=== PATIENT | female | born 1980 | race Two or more races ===

== ENCOUNTER 2020-09-14 13:01 | Outpatient (RCR) | payer MEDICAID, SELFPAY | END 2021-03-02 08:12 | disposition home or self-care (01) | LOC: HO.PT 13:01 | PROVIDERS: PCP Family Medicine; Visit Provider Family Medicine | DX: M54.6 Pain in thoracic spine (principal) | CPT/HCPCS: 97110; 97161 ==

== ENCOUNTER 2022-03-25 14:06 | Emergency (ER) | payer MEDICAID, SELFPAY ==
--- NOTE | ~2022-03-25 | XR_ITS ---
EXAMINATION: XR CHEST CLINICAL INFORMATION: Chest pain COMPARISON: Previous chest x-ray most recent January 2018 TECHNIQUE: 2 views of the chest were obtained. FINDINGS: No significant abnormality is noted involving the heart, lungs, mediastinum, bony thorax or soft tissues. XR/XR chest 2V IMPRESSION: Unremarkable examination.
[2022-03-25 14:09] VITALS: BP 163/100; PULSE 80; RESP 18; TEMP 36.8; O2SAT 97; BMI 25.8
--- NOTE | 2022-03-25 14:09 | ECG_ITS ---
Test Reason : CHEST PAIN Blood Pressure : / mmHG Vent. Rate : 075 BPM Atrial Rate : 075 BPM P-R Int : 120 ms QRS Dur : 068 ms QT Int : 434 ms P-R-T Axes : 008 042 015 degrees QTc Int : 484 ms Normal sinus rhythm Prolonged QT Abnormal ECG When compared with ECG of 11-FEB-2018 22:42, No significant change was found Referred By: Generic ED Physician Electronically Signed By:ERIC MOLINA
[2022-03-25 14:29] LABS: MANUAL DIFF FLAG NO
[2022-03-25 14:31] LABS: Basophils Absolute Auto 0.1 X10*3/uL (0.0-0.2); Basophils Percent Auto 0.6 % (0-2); Eosinophils Absolute Auto 0.2 X10*3/uL (0.0-0.4); Eosinophils Percent Auto 2.4 % (0-4); Hematocrit 37.4 % (37.0-47.0); Hemoglobin 10.9 g/dl (12.0-16.0); Imm Gran Abs Auto 0.02 X10*3/uL (0.00-0.03); Imm Gran Pct Auto 0.2 % (0.0-0.4); Lymphocytes Absolute Auto 1.8 X10*3/uL (1.2-4.9); Lymphocytes Percent Auto 20.7 % (20-40); Mean Corpuscular HGB Conc 29.1 g/dl (31.0-35.0); Mean Corpuscular Hemoglobin 21.5 pg (27.0-33.0); Mean Corpuscular Volume 73.8 fL (80.0-98.0); Mean Platelet Volume 9.3 fL (9.4-12.3); Monocytes Absolute Auto 0.7 X10*3/uL (0.1-1.2); Monocytes Percent Auto 8.4 % (2-11); Neutrophils Absolute Auto 5.9 x10*3/uL (2.0-8.3); Neutrophils Percent Auto 67.7 % (45-73); Platelet Count 382 X10*3/uL (160-400); Red Blood Count 5.07 X10*6/uL (4.20-5.50); White Blood Count 8.8 X10*3/uL (4.8-10.8)
--- NOTE | 2022-03-25 14:35 | ED_ITS ---
HPI - Chest Pain General Chief Complaint: Chest Pain Stated Complaint: HBP/Chest pain Time Seen by Provider: 03/25/22 14:34 Source: patient Mode of arrival: ambulatory Limitations: no limitations History of Present Illness HPI narrative: Patient is a 41 year old female presenting to the emergency department today with chest pain. Patient states that she woke up this morning with central chest pain that felt like a burning pain. Patient states that there was a different kind of pain that wraps around her ribs. Patient denies any dizziness, lightheadedness, abdominal pain, nausea, vomiting, fever, chills, blurry vision, double vision, loss of vision, difficulty breathing, shortness of breath, back pain, night sweats, pain with urination, increased urinary frequency, increased urinary urgency, blood in her urine or stool, syncope or a near syncopal episode, recent trauma or falls, bowel incontinence, bladder incontinence, bowel retention, bladder retention, or any other complaints at this time. Patient states that she does have HTN for which she takes metoprolol. Patient states that she checked her blood pressure at home and it was high with the top number in the 180s. MD complaint: chest pain Onset (ago): hour(s) Pain location: substernal and epigastric Pain radiation: left arm Severity: mild Pain scale (0-10): 3 Quality: burning Relieving factors: nothing Exacerbating factors: nothing Treatment prior to arrival: none Related Data Allergies Allergy/AdvReac Type Severity Reaction Status Date / Time CHOCOLATE Allergy Unknown UNKNOWN Uncoded 03/12/20 18:46 SEAFOOD Allergy Unknown UNKNOWN Uncoded 03/12/20 18:46 Review of Systems Constitutional: Constitutional: Reports no additional constitutional complaints, Denies chills, Denies fever(s) and Denies night sweats Eyes: Eyes: Reports no additional eye complaints, Denies blurry vision, Denies change in vision, Denies diplopia, Denies eye discharge, Denies loss of vision and Denies eye pain ENT: Denies dizziness Cardiovascular: Cardiovascular: Reports no additional cardiovascular co mplaints, Reports chest pain, Denies lightheadedness, Denies Loss of Consciousness and Denies dyspnea Respiratory: Respiratory: Reports no additional respiratory complaints and Denies dyspnea Gastrointestinal: Gastrointestinal: Reports no additional gastrointestinal complaints, Denies abdominal pain, Denies melena, Denies hematochezia, Denies change in bowel habits and Denies change in stool character Genitourinary: Genitourinary: Denies hematuria, Denies urinary frequency, Denies dysuria, Denies urinary incontinence, Denies urinary hesitancy and Denies urinary urgency Musculoskeletal: Musculoskeletal: Reports no additional musculoskeletal complaints, Denies numbness and Denies tingling Neurologic: Denies dizziness, Denies loss of vision, Denies numbness and Denies tingling Psychiatric: Psychiatric: Reports no additional psychiatric complaints Endocrine: Endocrine: Reports no additional endocrine complaints Hematologic/Lymphatic: Hematologic/Lymphatic: Reports no additional hem atologic/lymphatic complaints Allergic/Immunologic: Allergic/Immunologic: Reports no additional allergic/immunologic complaints [facility] Past Medical History Attestation statement: The following information was validated with the patient. Source: old records reviewed Medical History Hypertension Social History Social History Patient Tobacco Use Status: Former Tobacco user Use of substances other than those prescribed or required for medical reasons: No Advance Directives: No Advance Directives Information Provided: No Patient : No Physical Exam Vital Signs: Vital Signs: Last Vital Signs Temp 98.5 F 03/25/22 16:00 Pulse 73 03/25/22 16:00 Resp 16 03/25/22 16:00 BP 148/79 H 03/25/22 16:00 Pulse Ox 98 03/25/22 16:00 O2 Del Method 03/25/22 16:00 BMI result Body Mass Index 25.8 Const: General: cooperative, no acute distress, alert and awake Nutritional Appearance: well nourished Orientation/consciousness: patient oriented x3 Limitations: no limitations HEENT: Head: Yes normal to inspection and Yes atraumatic Ears: hearing grossly normal bilaterally and external ears normal General nose exam: Normal external nose present, no nasal discharge noted and no epistaxis Face and sinus: Yes normal facial exam, No abrasion and No laceration Mouth: Normal oral and palatal mucosa present, no drooling and no muffled voice Eyes: General: appearance normal, both eyes and all related structures Periorbital: periorbital findings normal Eyelids: Yes eyelids normal Conjunctivae: conjunctivae normal Pupils: Equal, round and reactive pupils present EOM: EOMs intact bilaterally Neck: Neck: Yes normal visual inspection, Yes full ROM and Yes no lymphadenopathy Chest: Chest palpation & inspection: normal inspection of the chest Resp: Effort & Inspection: normal respiratory effort and able to speak in complete sentences Auscultation: clear to auscultation bilaterally Cardio: Rate: regular rate Rhythm: regular rhythm GI: Inspection: Yes normal to inspection Neuro: General: patient oriented x3 and moves all extremities Cranial nerves: Yes Equal, round and reactive pupils present Cognition (Neuro): normal cognition Motor exam (neuro): 5/5 motor strength present throughout Sensory Exam: Normal double simultaneous stimulation for sensation Coordination: bpnvmv-bj-nulf test normal Extrem: General: Yes normal to inspection, Yes full ROM and Yes capillary refill normal Psych: Appearance: grossly normal Mental Status: mental status grossly normal Affect: normal affect Attitude: cooperative Thought process: Normal thought process present Thought content: Normal thought content present Insight: Good insight present (Psych) MDM - Chest Pain MDM Narrative Medical decision making narrative: Patient is a 41 year old female presenting to the emergency department today with epigastric and chest wall pain. Patient's physical exam was unremarkable. Patient's blood work was unremarkable. Patient's EKG was unremarkable. Patient's chest x-ray showed no acute process. I explained my physical exam findings as well as all test results to the patient. I answered all questions asked by the patient. Patient received PO Maalox and IM Toradol which she stated helped her pain significantly. I stressed the importance of the patient taking her medication as prescribed. I stressed the importance of the patient following up with her primary care provider. I stressed the importance of the patient returning to the emergency department immediately if her symptoms were to worsen or if she were to develop any dizziness, shortness of breath, difficulty breathing, chest pain, blurry vision, loss of vision, nausea, vomiting, abdominal pain, fever, chills, back pain, or any other complaints. Patient verbalized agreement and understanding with this treatment plan and discharge. Differential Diagnosis Differential diagnosis: Likely atypical chest pain Medical Records Data Attestation: I reviewed the patient's medical records. Lab Data Attestation: I reviewed the patient's lab results. Result diagrams: 03/25/22 14:23 03/25/22 14:24 Labs: Lab Results 03/25/22 03/25/22 03/25/22 Range/Units 14:23 14:23 14:24 WBC 8.8 (4.8-10.8) X10*3/uL RBC 5.07 (4.20-5.50) X10*6/uL Hgb 10.9 L (12.0-16.0) g/dl Hct 37.4 (37.0-47.0) % MCV 73.8 L (80.0-98.0) fL MCH 21.5 L (27.0-33.0) pg MCHC 29.1 L (31.0-35.0) g/dl RDW 17.0 H (11.0-16.0) % Plt Count 382 (160-400) X10*3/uL MPV 9.3 L (9.4-12.3) fL Immature Gran % (Auto) 0.2 (0.0-0.4) % Neut % (Auto) 67.7 (45-73) % Lymph % (Auto) 20.7 (20-40) % Lyon % (Auto) 8.4 (2-11) % Eos % (Auto) 2.4 (0-4) % Baso % (Auto) 0.6 (0-2) % Lymph # (Auto) 1.8 (1.2-4.9) X10*3/uL Lyon # (Auto) 0.7 (0.1-1.2) X10*3/uL Eos # (Auto) 0.2 (0.0-0.4) X10*3/uL Baso # (Auto) 0.1 (0.0-0.2) X10*3/uL Abs Immat Gran (auto) 0.02 (0.00-0.03) X10*3/uL Absolute Neuts (auto) 5.9 (2.0-8.3) x10*3/uL Absolute Nucleated RBC 0.000 (0.0-0.012) X10*3/uL Nucleated RBC % (auto) 0.0 (0.0-0.2) /100WBC Sodium 139 (135-145) mmol/L Potassium 4.1 (3.3-5.1) mmol/L Chloride 104 (96-108) mmol/L Carbon Dioxide 23 (22-29) mmol/L Anion Gap 16 (12-20) BUN 7 L (9-16) mg/dL Creatinine 0.64 (0.5-1.4) mg/dL Estim Creat Clear Calc 123.8 Estimated GFR > 60 Random Glucose 96 (60-115) mg/dL Calcium 9.3 (8.4-10.2) mg/dL Total Bilirubin 0.8 (0.0-1.0) mg/dL Direct Bilirubin 0.3 (0.0-0.5) mg/dL AST 66 H (5-31) U/L ALT 66 H (0-31) U/L Alkaline Phosphatase 73 (39-117) U/L Troponin I High Sens < 3.5 (<3.5-17.0) ng/L Total Protein 6.9 (6.5-8.0) g/dL Albumin 4.2 (3.5-5.0) g/dL Lipase 20 (8-78) U/L Imaging Data Chest x-ray: Attestation: I personally reviewed and interpreted this imaging study as follows: My impression: No acute process. Radiologist's impression: EXAMINATION: XR CHEST CLINICAL INFORMATION: Chest pain COMPARISON: Previous chest x-ray most recent January 2018 TECHNIQUE: 2 views of the chest were obtained. FINDINGS: No significant abnormality is noted involving the heart, lungs, mediastinum, bony thorax or soft tissues. XR/XR chest 2V IMPRESSION: Unremarkable examination. Dictated By: Ioana Peres MD Signed By: Electronically signed by Ioana Peres MD 03/25/22 7743 ECG Data ECG #1: Attestation: I personally reviewed and interpreted this ECG as follows: ECG interpretation date: 03/25/22 ECG interpretation time: 14:13 Prior ECG tracings: available for review Interpretation: Vent. Rate: 075 BPM ? ? Atrial Rate: 075 BPM P-R Int: 120 ms? QRS Dur: 068 ms QT Int: 434 ms ? ? ? P-R-T Axes: 008 042 015 degrees QTc Int: 484 ms ? Normal sinus rhythm Prolonged QT Abnormal ECG When compared with ECG of 11-FEB-2018 22:42, No significant change was found DD/ 1413 Discharge Plan Discharge Clinical Impression: Atypical chest pain Patient Disposition: Home, Self-Care Instructions: Gastroesophageal Reflux Disease (ED), Chest Wall Pain (ED) Additional Instructions: Follow up with your primary care provider. Return to the emergency department immediately if your symptoms worsen or if you develop any dizziness, shortness of breath, difficulty breathing, chest pain, blurry vision, loss of vision, nausea, vomiting, abdominal pain, fever, chills, back pain, or any other complaints. Referrals: Tuan Dan MD [Primary Care Provider] - Stand Alone Forms: Work/School Release Interventions: ED Discharge Assessment Last Done: 03/25/22 17:13 Discharge Date/Time: 03/25/22 17:13 Print Language: Samoan
[2022-03-25 14:45] VITALS: BP 141/83; PULSE 69; RESP 18; TEMP 37; O2SAT 97
[2022-03-25 14:49] LABS: Alanine Aminotransferase 66 U/L (0-31); Albumin Level 4.2 g/dL (3.5-5.0); Alkaline Phosphatase 73 U/L (39-117); Anion Gap 16 (12-20); Aspartate Amino Transferase 66 U/L (5-31); Bilirubin Direct 0.3 mg/dL (0.0-0.5); Bilirubin Total 0.8 mg/dL (0.0-1.0); Blood Urea Nitrogen 7 mg/dL (9-16); Calcium 9.3 mg/dL (8.4-10.2); Carbon Dioxide 23 mmol/L (22-29); Chloride 104 mmol/L (96-108); Creatinine Clr Calc Pharmacy 123.8; Estimated Glomerular Filt Rate > 60; Glucose Random 96 mg/dL (60-115); Lipase 20 U/L (8-78); Potassium 4.1 mmol/L (3.3-5.1); Sodium 139 mmol/L (135-145); Total Protein 6.9 g/dL (6.5-8.0)
[2022-03-25 14:52] LABS: Troponin-I High Sensitivity < 3.5 ng/L (<3.5-17.0)
--- NOTE | 2022-03-25 14:55 | PC.NURSE ---
Pt V/S are within the normal limit, pt lung sound clear bilaterally, no edema, skin turgor +, <2 capillary refill, normal heart sound. PT is placed on the telemetry shows NSR. Will continue to monitor.
[2022-03-25] MEDS: Omeprazole 20 MG CAPSULE.DR PO (15:22)
[2022-03-25] MEDS: Magnesium Hydrox/Alum Hydrox 30 ML ORAL.SUSP 15 ML PO (15:22)
--- NOTE | 2022-03-25 15:26 | PC.NURSE ---
Pt meds were administer as order.
[2022-03-25 16:00] VITALS: BP 148/79; PULSE 73; RESP 16; TEMP 36.9; O2SAT 98
--- OUTSIDE RECORDS SUMMARY | 2022-03-25 16:12 | XMS_ITS | Continuity of Care Document ---
:1980 Author Organization [facility] Address [address] [place] [id number]- Care Team Providers Name Role Phone Not on Staff, PCP Primary Care Physician Unavailable Encounter [facility] Date(s): 09/17/21 - 10/29/[address] [address] Attending Physician: Suma Dexter MD Admitting Physician: Suma Dexter MD Allergies, Adverse Reactions, Alerts Substance Reaction Severity Status Chocolate itchy, skin blisters Active Seafood facial swelling Active Medications 22 gauge 1 1/2in needles 22 gauge 1 1/2in needles, See Instructions, # 30 each, Refills 5, Tot. Refills 5, Maintenance, For giving IM progesterone, 10/25/21 11:11:00 EDT, Compound, 172, cm, 10/21/21 9:20:00 EDT, Height, 78, kg, 10/21/21 9:20:00 EDT, Dry Weight Start Date: 10/25/21 Status: [id number] syringe 18g 1 1/2 inch needle 3cc syringe 18g 1 1/2 inch needle, See Instructions, # 30 each, Refills 5, Tot. Refills 5, Maintenance, for drawing up IM progesterone in oil, 10/25/21 11:11:00 EDT, Compound, 172, cm, 10/21/21 9:20:00EDT, Height, 78, kg, 10/21/21 9:20:00 EDT, Dry We... Start Date: 10/25/21 Status: OrderedApri 0.15 mg-0.03 mg oral tablet 1 tablet, By Mouth, Daily, # 28 tablet, 3 Refills, Maintenance, 08/24/21 12:19:00 EST, Tablet, [facility] #[id number], Partial fill upon patient request if the prescription is for a schedule II opioid drug., 1 tablet By Mouth Daily, 172.72, cm, 08/24/21 1... Start Date: 08/24/21 Status: OrderedCetrotide 0.25 mg subcutaneous injection = 0.25 mg, Subcutaneous Infusion, Daily, # 5 each, 5 Refills, Maintenance, 10/25/21 11:11:00 EDT, [facility], Partial fill upon patient request if the prescription is for a schedule II opioid drug., 172, cm, 10/21/21 9:20:00 EDT, Height, 7... Start Date: 10/25/21 Status: Ordereddoxycycline hyclate 100 mg oral tablet 1 tablet = 100 mg, By Mouth, 2 times a day, may take with food to minimize abdominal discomfort, # 28 tablet, 5 Refills, Maintenance, 10/25/21 11:10:00 EDT, [facility], Partial fill upon patient request if the prescription is for a schedul... Start Date: 10/25/21 Status: OrderedGonal-F 1050 units subcutaneous injection = 300 International_Units, Subcutaneous Injection, Daily, # 3 kit, 5 Refills, Maintenance, 10/26/21 14:20:00 EDT, [facility], Partial fill upon patient request if the prescription is for a schedule II opioid drug., 300 International_Units... Start Date: 10/26/21 Status: OrderedMenopur 75 intl units subcutaneous injection = 150 International_Units, Subcutaneous Injection, Daily, # 20 each, 5 Refills, Maintenance, 10/25/21 11:11:00 EDT, [facility], Partial fill upon patient request if the prescription is for a schedule II opioid drug., 172, cm, 10/21/21 9:20... Start Date: 10/25/21 Status: Orderedmetoprolol 25 mg oral tablet 25 mg, 1, tablet, By Mouth, Daily, Refills 0, Maintenance, 08/24/21 11:44:00 EST, Partial fill upon patient request if the prescription is for a schedule II opioid drug. Start Date: 08/24/21 Status: OrderedOvidrel 250 mcg/0.5 mL subcutaneous solution See Instructions, Inject 1 prefilled syringes when instructed., # 1 each, 5 Refills, Maintenance, 10/25/21 11:11:00 EDT, Solution, [facility], Partial fill upon patient request if the prescription is for a schedule II opioid drug., 172, cm... Start Date: 10/25/21 Status: Orderedprogesterone 50 mg/mL intramuscular solution 50mg/ml 1 ml (sesame oil), Intramuscular, Daily, # 30 mL, 5 Refills, Maintenance, 10/25/21 11:11:00 EDT, [facility], Partial fill upon patient request if the prescription is for a schedule II opioid drug., 172, cm, 10/21/21 9:20:00 EDT, He... Start Date: 10/25/21 Status: OrderedVivelle-Dot 0.1 mg/24 hours twice weekly transdermal film, extended release 2 patch, Topically, Every other day, Change every other day start day after egg retrieval, # 32 patch, 5 Refills, Maintenance, 10/25/21 11:10:00 EDT, [facility], Partial fill upon patient request if the prescription is for a schedule II op... Start Date: 10/25/21 Status: Ordered Problem List Condition Effective Dates Status Health Status Informant Anemia(Confirmed) Active Anxiety(Confirmed) Active Asthma(Confirmed) Active History of appendicitis(Confirmed) Active History of blood Active transfusion(Confirmed) Hypertension(Confirmed) Active Social History Social History Type Response Smoking Status Never entered on: 05/07/21 Sex
--- OUTSIDE RECORDS SUMMARY | 2022-03-25 16:12 | XMS_ITS | Continuity of Care Document ---
:1980 Author Organization [facility] Address Unavailable , Care Team Providers Name Role Phone Not on Staff, PCP Primary Care Physician Unavailable [place] [facility] [place] 12/20[place]21 [place] 01/19/22 [facility] Allergies, Adverse Reactions, Alerts Substance Reaction Severity [...] EDT, Dry Weight Start Date: 10/25/21 Status: [id number] syringe 18g 1 1/2 inch needle 3cc syringe 18g 1 1/2 inch needle, See Instructions, # 30 each, Refills 5, Tot. Refills 5, Maintenance, for drawing up IM progesterone in oil, 10/25/21 11:11:00 EDT, Compound, 172, cm, 10/21/21 9:20:00EDT, Height, 78, kg, 10/21/21 9:20:00 EDT, Dry We... Start Date: 10/25/21 Status: Orderedmetoprolol 25 mg oral tablet 25 mg, 1, tablet, By Mouth, Daily, Refills 0, Maintenance, 08/24/21 11:44:00 EST, Partial fill upon patient request if the prescription is for a schedule II opioid drug. Start Date: 08/24/21 Status: Orderedprogesterone 50 mg/mL intramuscular solution 50mg/ml 1 ml (sesame oil), Intramuscular, Daily, # 30 mL, 5 Refills, Maintenance, 10/25/21 11:11:00 EDT, [facility], Partial fill upon patient request if the prescription is for a schedule II opioid drug., 172, cm, 10/21/21 9:20:00 EDT, He... Start Date: 10/25/21 Status: OrderedPrometrium 200 mg oral capsule = 200 mg, Vaginally, 3 times a day, # 90 capsule, 5 Refills, Maintenance, 01/05/22 10:48:00 EDT, [facility], Partial fill upon patient request if the prescription is for a schedule II opioid drug., 172, cm, 10/21/21 9:20:00 EDT, Height, 78... Start Date: 01/05/22 Status: OrderedVivelle-Dot 0.1 mg/24 hours twice weekly transdermal film, extended release 2 patch, Topically, Every other day, Change every other day start day after egg retrieval, # 32 patch, 5 Refills, Maintenance, 10/25/21 11:10:00 EDT, [facility], Partial fill upon patient request if the [...]
--- OUTSIDE RECORDS SUMMARY | 2022-03-25 16:13 | XMS_ITS | Continuity of Care Document ---
:1980 Author Organization [facility] Address [address] [place] [address], [address] [place] [id number]- Care Team Providers Name Role Phone Not on Staff, PCP Primary Care Physician Unavailable Encounter [facility] Date(s): 06/17/20 - 07/17/20 [facility] [address] [place] [address], [address] [place] [id number] Attending Physician: Nito Valladares Admitting Physician: Nito Valladares Referring Physician: Nito Valladares
--- OUTSIDE RECORDS SUMMARY | 2022-03-25 16:13 | XMS_ITS | Continuity of Care Document ---
:1980 Author Organization [facility] Address Unavailable , Care Team Providers Name Role Phone Not on Staff, PCP Primary Care Physician Unavailable Encounter [facility] [place]): 12/30/21 - 01/29/22 [facility] Allergies, Adverse Reactions, Alerts [...] EDT, Dry Weight Start Date: 10/25/21 Status: [id number] syringe 18g 1 1/2 inch needle 3cc [...] Refills, Maintenance, 01/05/22 10:48:00 EDT, [facility], Partial fill upon patient request if the prescription is for a schedule II opioid drug., 172, cm, 10/21/21 9:20:00 EDT, Height, 78... Start Date: 01/05/22 Status: OrderedVivelle-Dot 0.1 mg/24 hours twice weekly transdermal film, extended release 2 patch, Topically, Every other day, Change every other day start day after egg retrieval, # 32 patch, 5 Refills, Maintenance, 10/25/21 11:10:00 EDT, [facility], Partial fill upon patient request if [...]
--- OUTSIDE RECORDS SUMMARY | 2022-03-25 16:13 | XMS_ITS | Continuity of Care Document ---
:1980 Author Organization [facility] Address Unavailable , Care Team Providers Name Role Phone Not on Staff, PCP Primary Care Physician Unavailable Encounter [facility] [place] Date(s): 11/28/21 - 12/05/21 [facility] Attending Physician: Cyndy Piña MD Referring Physician: Suma Dexter MD Allergies, Adverse Reactions, [...] EDT, Dry Weight Start Date: 10/25/21 Status: [id number] syringe 18g 1 1/2 inch needle 3cc [...]
--- OUTSIDE RECORDS SUMMARY | 2022-03-25 16:13 | XMS_ITS | Continuity of Care Document ---
:1980 Author Organization [facility] Address Unavailable , Care Team Providers Name Role Phone Not on Staff, PCP Primary Care Physician Unavailable [place] [facility] [place]/21 - 11/22/21 [facility] Attending Physician: Suma Dexter MD Referring Physician: Suma Dexter MD Allergies, [...] EDT, Dry Weight Start Date: 10/25/21 Status: [id number] syringe 18g 1 1/2 inch needle 3cc [...] 3 Refills, Maintenance, 08/24/21 12:19:00 EST, Tablet, [id number], Partial fill upon patient request if the [...] Refills, Maintenance, 10/26/21 14:20:00 EDT, [facility], Partial fill upon [...]
--- OUTSIDE RECORDS SUMMARY | 2022-03-25 16:13 | XMS_ITS | Continuity of Care Document ---
:1980 Author Organization [facility] Address Unavailable , Care Team Providers Name Role Phone Not on Staff, PCP Primary Care Physician Unavailable En[place] [facility] [place] Date(s): 12/16/21 - 01/15/22 [facility] Allergies, Adverse Reactions, Alerts [...] EDT, Dry Weight Start Date: 10/25/21 Status: [id number] syringe 18g 1 1/2 inch needle 3cc [...] Refills, Maintenance, 01/05/22 10:48:00 EDT, [facility], Partial fill upon patient request if the prescription is for a schedule II opioid drug., 172, cm, 10/21/21 9:20:00 EDT, Height, 78... Start Date: 01/05/22 Status: OrderedVivelle-Dot 0.1 mg/24 hours twice weekly transdermal film, extended release 2 patch, Topically, Every other day, Change every other day start day after egg retrieval, # 32 patch, 5 Refills, Maintenance, 10/25/21 11:10:00 EDT, [facility], Partial fill upon patient request if the [...]
--- OUTSIDE RECORDS SUMMARY | 2022-03-25 16:13 | XMS_ITS | Continuity of Care Document ---
:1980 Author Organization [facility] Address [address] [place] [id number]- Care Team Providers Name Role Phone Not on Staff, PCP Primary Care Physician Unavailable [place] [facility] [place] 12/30/[address] [id number] [place] Attending Physician: Cyndy Piña MD Allergies, Adverse Reactions, Alerts Substance Reaction [...] EDT, Dry Weight Start Date: 10/25/21 Status: [id number] syringe 18g 1 1/2 inch needle 3cc [...]
--- OUTSIDE RECORDS SUMMARY | 2022-03-25 16:13 | XMS_ITS | Continuity of Care Document ---
:1980 Author Organization [facility] Address Unavailable , Care Team Providers Name Role Phone Not on Staff, PCP Primary Care Physician Unavailable [place] [facility] [place] 09[place]20/21 - 11/21/21 [facility] Attending Physician: Suma Dexter MD Referring Physician: Not on Staff, Referring MD Allergies, Adverse Reactions, Alerts Substance Reaction [...] EDT, Dry Weight Start Date: 10/25/21 Status: [id number] syringe 18g 1 1/2 inch needle 3cc [...] Refills, Maintenance, 08/24/21 12:19:00 EST, Tablet, [id number], Partial fill upon patient request if the [...]
--- OUTSIDE RECORDS SUMMARY | 2022-03-25 16:13 | XMS_ITS | Continuity of Care Document ---
:1980 Author Organization [facility] Address Unavailable , Care Team Providers Name Role Phone Not on Staff, PCP Primary Care Physician Unavailable Encounter [facility] Date(s): 05/11/21 - 06/10/21 [facility] Allergies, Adverse Reactions, Alerts Substance Reaction Severity Status Chocolate Active Seafood Active Problem List Condition Effective Dates Status Health Status Informant Anemia(Confirmed) Active Anxiety(Confirmed) Active Asthma(Confirmed) Active History of appendicitis(Confirmed) Active History of blood Active transfusion(Confirmed) Hypertension(Confirmed) Active Social History Social History Type Response Smoking Status Never entered on: 05/07/21 Sex
--- OUTSIDE RECORDS SUMMARY | 2022-03-25 16:13 | XMS_ITS | Continuity of Care Document ---
:1980 Author Organization [facility] Address Unavailable , Care Team Providers Name Role Phone Not on Staff, PCP Primary Care Physician Unavailable Encounter [facility] Date(s): 09/27/21 - 10/27/21 [facility] Allergies, Adverse Reactions, Alerts Substance [...] EDT, Dry Weight Start Date: 10/25/21 Status: [id number] syringe 18g 1 1/2 inch needle 3cc [...] Refills, Maintenance, 08/24/21 12:19:00 EST, Tablet, [id number], Partial fill upon patient request if the [...]
--- OUTSIDE RECORDS SUMMARY | 2022-03-25 16:13 | XMS_ITS | Continuity of Care Document ---
:1980 Author Organization [facility] Address Unavailable , Care Team Providers Name Role Phone Not on Staff, PCP Primary Care Physician Unavailable Encounter [facility] [place] Date(s): 09/10/21 - 10/10/21 [facility] Allergies, Adverse Reactions, Alerts Substance Reaction Severity Status Chocolate Active Seafood Active Medications Apri 0.15 mg-0.03 mg oral tablet 1 tablet, By Mouth, Daily, # 28 tablet, 3 Refills, Maintenance, 08/24/21 12:19:00 EST, Tablet, [facility]/pharmacy #[id number], Partial fill upon patient request if the prescription is for a schedule II opioid drug., 1 tablet By Mouth Daily, 172.72, cm, 08/24/21 1... Start Date: 08/24/21 Status: Orderedmetoprolol 25 mg oral tablet 25 mg, 1, tablet, By Mouth, 2 times a day, Refills 0, Maintenance, 08/24/21 11:44:00 EST, Partial fill upon patient request if the prescription is for a schedule II opioid drug. Start Date: 08/24/21 Status: Ordered Problem List Condition Effective Dates Status Health Status Informant Anemia(Confirmed) Active Anxiety(Confirmed) Active Asthma(Confirmed) Active History of appendicitis(Confirmed) Active History of blood Active transfusion(Confirmed) Hypertension(Confirmed) Active Social History Social History Type Response Smoking Status Never entered on: 05/07/21 Sex
--- OUTSIDE RECORDS SUMMARY | 2022-03-25 16:13 | XMS_ITS | Continuity of Care Document ---
:1980 Author Organization [facility] Address Unavailable , Care Team Providers Name Role Phone Not on Staff, PCP Primary Care Physician Unavailable Encounter [facility] [place] Date(s): 08/27/21 - 09/26/21 [facility] Allergies, Adverse Reactions, Alerts Substance Reaction Severity Status Chocolate Active Seafood Active Medications Apri 0.15 mg-0.03 mg oral tablet 1 tablet, By Mouth, Daily, # 28 tablet, 3 Refills, Maintenance, 08/24/21 12:19:00 EST, Tablet, [facility]/pharmacy #[id number], Partial fill upon patient request [...]
--- OUTSIDE RECORDS SUMMARY | 2022-03-25 16:13 | XMS_ITS | Continuity of Care Document ---
:1980 Author Organization [facility] Address [address]th [address] [place] [phone]- Care Team Providers Name Role Phone Not on Staff, PCP Primary Care Physician Unavailable Encounter [facility] [place] Date(s): 01/17/22 - 02/16/22 [facility] [address], [facility] Floor [address] [place] [id number] Allergies, Adverse Reactions, Alerts Substance Reaction Severity [...] EDT, Dry Weight Start Date: 10/25/21 Status: [id number] syringe 18g 1 1/2 inch needle 3cc [...] Refills, Maintenance, 01/05/22 10:48:00 EDT, [facility], Partial fill upon [...]
--- OUTSIDE RECORDS SUMMARY | 2022-03-25 16:13 | XMS_ITS | Continuity of Care Document ---
:1980 Author Organization [facility] Address Unavailable , Care Team Providers Name Role Phone Not on Staff, PCP Primary Care Physician Unavailable Encounter [facility] [place] Date(s): 10/25/21 - 11/24/21 [facility] Allergies, Adverse Reactions, Alerts [...] EDT, Dry Weight Start Date: 10/25/21 Status: [id number] syringe 18g 1 1/2 inch needle 3cc [...] Refills, Maintenance, 08/24/21 12:19:00 EST, Tablet, [id number], Partial fill upon patient request if the [...]
--- OUTSIDE RECORDS SUMMARY | 2022-03-25 16:13 | XMS_ITS | Continuity of Care Document ---
:1980 Author Organization [facility] Address Unavailable , Care Team Providers Name Role Phone Not on Staff, PCP Primary Care Physician Unavailable Encounter [facility] Date(s): 07/01/21 - 07/08/21 [facility] Attending Physician: Suma Dexter MD Allergies, Adverse Reactions, Alerts Substance Reaction Severity Status Chocolate Active Seafood Active Problem List Condition Effective Dates Status Health Status Informant Anemia(Confirmed) Active Anxiety(Confirmed) Active Asthma(Confirmed) Active History of appendicitis(Confirmed) Active History of blood Active transfusion(Confirmed) Hypertension(Confirmed) Active Vital Signs Most recent to oldest [Reference Range]: 1 Height 172.72 cm (07/01/21 2:20 PM) Social History Social History Type Response Smoking Status Never entered on: 05/07/21 Sex
--- OUTSIDE RECORDS SUMMARY | 2022-03-25 16:13 | XMS_ITS | Continuity of Care Document ---
:1980 [facility] [employer] [facility] Address [address] [place] [phone] Care Team Providers Name Role Phone Not on Staff, PCP Primary Care Physician Unavailable Encounter [facility] [place] Date(s): 12/06/21 - 01/05/22 [facility] [employer] [address] [id number] Allergies, Adverse Reactions, Alerts Substance Reaction Severity [...] EDT, Dry Weight Start Date: 10/25/21 Status: [id number] syringe 18g 1 1/2 inch needle 3cc [...]
--- OUTSIDE RECORDS SUMMARY | 2022-03-25 16:13 | XMS_ITS | Continuity of Care Document ---
:1980 Author Organization [facility] Address Unavailable , Care Team Providers Name Role Phone Not on Staff, PCP Primary Care Physician Unavailable Encounter [facility] Date(s): 07/21/21 - 08/20/21 [facility] Allergies, Adverse Reactions, Alerts Substance Reaction Severity Status Chocolate Active Seafood Active Problem List Condition Effective Dates Status Health Status Informant Anemia(Confirmed) Active Anxiety(Confirmed) Active Asthma(Confirmed) Active History of appendicitis(Confirmed) Active History of blood Active transfusion(Confirmed) Hypertension(Confirmed) Active Social History Social History Type Response Smoking Status Never entered on: 05/07/21 Sex
--- OUTSIDE RECORDS SUMMARY | 2022-03-25 16:13 | XMS_ITS | Continuity of Care Document ---
:1980 Author Organization [facility] Address Unavailable , Care Team Providers Name Role Phone Not on Staff, PCP Primary Care Physician Unavailable Encounter [facility] [place] Date(s): 11/28/21 - 12/28/21 [facility] Attending Physician: Nito Valladares Admitting Physician: Nito Valladares Referring Physician: Nito Valladares Allergies, Adverse Reactions, Alerts Substance Reaction Severity [...] EDT, Dry Weight Start Date: 10/25/21 Status: [id number] syringe 18g 1 1/2 inch needle 3cc [...]
--- OUTSIDE RECORDS SUMMARY | 2022-03-25 16:13 | XMS_ITS | Continuity of Care Document ---
:1980 Author Organization [facility] Address [address] [place] [phone]- Care Team Providers Name Role Phone Not on Staff, PCP Primary Care Physician Unavailable [place] [facility] [facility] [place]/21/21 - 10/21/[address] [id number] Discharge Disposition: A-D/C Home Attending Physician: Suma Dexter MD Admitting Physician: Suma Dexter MD Referring Physician: Suma Dexter MD Allergies, Adverse Reactions, Alerts Substance Reaction Severity Status Chocolate itchy, skin blisters Active Seafood facial swelling Active Medications Apri 0.15 mg-0.03 mg oral tablet 1 tablet, By Mouth, Daily, # 28 tablet, 3 Refills, Maintenance, 08/24/21 12:19:00 EST, Tablet, [id number], Partial fill upon patient request if [...] Active Vital Signs Most recent to oldest 1 2 3 [Reference Range]: Height 172 cm 172 cm (10/21/21 9:20 AM) (10/19/21 11:08 AM) Weight 78.0 kg 76.5 kg (10/21/21 9:20 AM) (10/19/21 11:08 AM) Oxygen Saturation [94-100 96 % 100 % 100 % %] (10/21/21 11:45 AM) (10/21/21 11:30 AM) (10/21/21 1:15 AM) Pulse Rate [55-90 bpm] 84 bpm (10/21/21 9:20 AM) Body Mass Index 26.37 25.86 [18.5-24.99] *H* *H* (10/21/21:20 AM) (10/19/21 11:08 AM) Blood Pressure 135/89 mm Hg 133/86 mm Hg 141/91 mm Hg [90-138/55-84 mm Hg] (10/21/21 11:45 AM) (10/21/21 11:30 AM) *H* (10/21/21 11:15 A M) Respiratory Rate [16-30 14 br/min 14 br/min 15 br/mi n br/min] *L* *L* *L* (10/21/21 11:45 AM) (10/21/21 11:30 AM) (10/21/21 1:15 AM) Temperature [96.8-100.4 97.3 DegF 98.4 DegF 97.0 Deg F DegF] (10/21/21 11:45 AM) (10/21/21 11:15 AM) (10/21/21 9 :20 AM) Liters per Minute 5 L/min (10/21/21 11:15 AM) Mode of Delivery (Oxygen) Room air Room air Shovel mask (10/21/21 11:45 AM) (10/21/21 11:30 AM) (10/21/21 1:15 AM) Blood pressure sites Arm, right Arm, right Arm, right (10/21/21 11:45 AM) (10/21/21 11:30 AM) (10/21/21 1:15 AM) Temperature Route Temporal Temporal (10/21/21 11:15 AM) (10/21/21 9:20 AM) Dry Weight 78.0 kg 76.5 kg (10/21/21 9:20 AM) (10/19/21 11:08 AM) Weight Obtained Via Standing scale (10/21/21 9:20 AM) Dry Weight Obtained Via Standing scale Patient/family stated (10/21/21 9:20 AM) (10/19/21 11:08 AM) Social History Social History Type Response Smoking Status Never entered on: 05/07/21 Sex
--- OUTSIDE RECORDS SUMMARY | 2022-03-25 16:13 | XMS_ITS | Continuity of Care Document ---
:1980 Author Organization [facility] Address [address] [place] [phone] Care Team Providers Name Role Phone Not on Staff, PCP Primary Care Physician Unavailable Encounter [facility] [place] Date(s): 12/05/21 - 12/05/[address] [address] Discharge Disposition: A-D/C Home Attending Physician: Suma [...] EDT, Dry Weight Start Date: 10/25/21 Status: [id number] syringe 18g 1 1/2 inch needle 3cc [...]
--- OUTSIDE RECORDS SUMMARY | 2022-03-25 16:13 | XMS_ITS | Continuity of Care Document ---
:1980 Author Organization [facility] Address [address] [place] [address], [facility] Floor [address] [place] [phone]- Care Team Providers Name Role Phone Not on Staff, PCP Primary Care Physician Unavailable Encounter [facility] Date(s): 04/30/20 - 07/17/20 [facility] [address] [place] [address], [address] [place] [id number] Attending Physician: Suma Dexter MD Referring Physician: Not on Staff, Referring
--- OUTSIDE RECORDS SUMMARY | 2022-03-25 16:13 | XMS_ITS | Continuity of Care Document ---
:1980 Author Organization [facility] Address Unavailable , Care Team Providers Name Role Phone Not on Staff, PCP Primary Care Physician Unavailable Encounter [facility] [place] Date(s): 05/07/21 - 05/14/21 [facility] Attending Physician: Suma Dexter MD Referring Physician: Max Kenny MD Allergies, Adverse Reactions, Alerts Substance Reaction Severity Status Chocolate Active Seafood Active Medications No Known Medications Problem List Condition Effective Dates Status Health Status Informant Anemia(Confirmed) Active Anxiety(Confirmed) Active Asthma(Confirmed) Active History of appendicitis(Confirmed) Active History of blood Active transfusion(Confirmed) Hypertension(Confirmed) Active Procedures Procedure Date Related Diagnosis Body Site Status History of tubal ligation Co mpleted Vital Signs Most recent to oldest [Reference Range]: 1 Height 172.72 cm (05/07/21 9:05 AM) Weight 74.5 kg (05/07/21 9:05 AM) Pulse Rate [55-90 bpm] 86 bpm (05/07/21 9:05 AM) Body Mass Index [18.5-24.99] 24.97 (05/07/21 9:05 AM) Blood Pressure [90-138/55-84 mm Hg] 140/88 mm Hg *H* (05/07/21 9:05 AM) Blood pressure sites Arm, right (05/07/21 9:05 AM) Weight Obtained Via Standing scale (05/07/21 9:05 AM) Social History Social History Type Response Smoking Status Never entered on: 05/07/21 Sex
--- OUTSIDE RECORDS SUMMARY | 2022-03-25 16:13 | XMS_ITS | Continuity of Care Document ---
:1980 Author Organization [facility] Address Unavailable , Care Team Providers Name Role Phone Not on Staff, PCP Primary Care Physician Unavailable Encounter [facility] [place] Date(s): 09/06/21 - 09/13/21 [facility] Attending Physician: Cyndy Piña [...] oldest [Reference Range]: 1 Height 172.72 cm (09/06/21 3:20 PM) Weight 78 kg (09/06/21 3:20 PM) Pulse Rate [55-90 bpm] 102 bpm *H* (09/06/21 3:20 PM) Body Mass Index [18.5-24.99] 26.15 *H* (3/14/22 3:20 PM) Blood Pressure [90-138/55-84 mm Hg] 136/85 mm Hg (09/06/21 3:20 PM) Blood pressure sites Arm, right (09/06/21 3:20 PM) Weight Obtained Via Standing scale (09/06/21 3:20 PM) Social History Social History Type Response Smoking Status Never entered on: 05/07/21 Sex
--- OUTSIDE RECORDS SUMMARY | 2022-03-25 16:13 | XMS_ITS | Continuity of Care Document ---
:1980 Author Organization [facility] Address [address] [place] [id number]- Care Team Providers Name Role Phone Not on Staff, PCP Primary Care Physician Unavailable En[place] [facility] [place] Date(s): 11/30/21 - 11/30/[address] [id number] Discharge Disposition: A-D/C Home Attending Physician: Cyndy Piña MD Admitting Physician: Cyndy Piña MD Referring Physician: Cyndy Piña MD Allergies, Adverse Reactions, [...] EDT, Dry Weight Start Date: 10/25/21 Status: [id number] syringe 18g 1 1/2 inch needle 3cc [...] 3 Refills, Maintenance, 08/24/21 12:19:00 EST, Tablet, [facility]/pharmacy #[id number], Partial fill upon patient request [...] drug., 172, cm... Start Date: 10/25/21 Status: OrderedoxyCODONE 5 mg oral capsule 1 capsule = 5 mg, By Mouth, Every 6 hours, # 10 capsule, 0 Refills, Maintenance, 11/28/21 11:54:00 EDT, [id number], Partial fill upon patient request if the prescription is for a schedule II opioid drug., 172, cm, 10/21/21 9:20:00 EDT, Height,... Start Date: 11/28/21 Status: Orderedprogesterone 50 mg/mL intramuscular solution 50mg/ml 1 ml (sesame oil), Intramuscular, Daily, # 30 mL, 5 Refills, Maintenance, 10/25/21 11:11:00 EDT, [facility], Partial fill upon patient request if the prescription is for a schedule II opioid drug., 172, cm, 10/21/21 9:20:00 EDT, He... Start Date: 10/25/21 Status: OrderedValium 5 mg oral tablet See Instructions, Take 1 tablet By Mouth 1 hour prior to procedure. May repeat as needed., # 2 tablet, Refills 0, Tot. Refills 0, Maintenance, 11/28/21 11:54:00 EDT, Instructions Replace Required Details, Route to Pharmacy Electronically, [facility]/pharmacy... Start Date: 11/28/21 Status: OrderedVivelle-Dot 0.1 mg/24 hours twice weekly [...]
--- OUTSIDE RECORDS SUMMARY | 2022-03-25 16:13 | XMS_ITS | Continuity of Care Document ---
:1980 Author Organization [facility] Address [address] [place] [phone]- Care Team Providers Name Role Phone Not on Staff, PCP Primary Care Physician Unavailable Encounter [facility] [place] Date(s): 11/23/21 - 12/23/21 [facility] [address] [address] Allergies, Adverse Reactions, Alerts Substance [...] EDT, Dry Weight Start Date: 10/25/21 Status: [id number] syringe 18g 1 1/2 inch needle 3cc [...]
--- OUTSIDE RECORDS SUMMARY | 2022-03-25 16:13 | XMS_ITS | Continuity of Care Document ---
:1980 Author Organization [facility] Address Unavailable , Care Team Providers Name Role Phone Not on Staff, PCP Primary Care Physician Unavailable [place] [facility] [place] 11/05/21 - 11/12/21 [facility] Attending Physician: Suma Dexter [...] EDT, Dry Weight Start Date: 10/25/21 Status: [id number] syringe 18g 1 1/2 inch needle 3cc [...] Refills, Maintenance, 08/24/21 12:19:00 EST, Tablet, [id number], Partial fill upon patient request if the [...]
[2022-03-25] MEDS: Ketorolac Tromethamine 15 MG/ML VIAL IM (16:20)
--- NOTE | 2022-03-25 16:23 | PC.NURSE ---
meds were administered as order. Pt is a/o x4, pt appears in no distress at the time of the re-assessment.
== END 2022-03-25 17:13 | disposition home or self-care (01) ==
PROVIDERS: Emergency Provider Emergency Medicine; PCP Family Medicine
DX: R07.89 Other chest pain (principal); Z87.891 Personal history of nicotine dependence; Z79.899 Other long term (current) drug therapy
CPT/HCPCS: 36415; 71046; 80053; 82248; 83690; 84484; 85025; 93005; 96372; 99284; 99285; J1885

== ENCOUNTER 2023-03-05 12:24 | Emergency (ER) | payer MEDICAID, SELFPAY ==
[2023-03-05 12:36] VITALS: BP 161/90; PULSE 83; RESP 19; TEMP 36.6; O2SAT 98; BMI 24.4
--- NOTE | 2023-03-05 12:36 | ED_ITS ---
HPI - General Adult General Chief complaint: Back Pain/Injury Stated complaint: Lower back pain/L leg pain Time Seen by Provider: 03/05/23 13:34 Related Data Allergies Allergy/AdvReac Type Severity Reaction Status Date / Time CHOCOLATE Allergy Unknown UNKNOWN Uncoded 03/05/23 12:36 SEAFOOD Allergy Unknown UNKNOWN Uncoded 03/05/23 12:36 [facility] Past Medical History Medical History Hypertension Social History Social History Patient Tobacco Use Status: Former Tobacco user Advance Directives: No Physical Exam ED Vital Signs: Vital Signs - 24 hr 03/05/23 12:36 Temperature 98 F Pulse Rate 83 Respiratory Rate 19 Blood Pressure 161/90 H Pulse Oximetry 98 Oxygen Delivery Method Room Air BMI result Body Mass Index 24.4 Course Course Course Narrative: This is an RME: Additional HPI, ROS, PE not included below will be deferred to primary provider. Patient is a 42-year-old female who presents emergency department for evaluation left lower back pain, radiating down her left leg. awoke with this pain 2 days ago. Associated numbness to the foot. Denies bladder or bowel dysfunction. Unrelieved with bengay and a pain patch. Denies precipitating injury, history of similar pain in the past, genitourinary symptoms. Plan: Placed in pending bed availability for pain management
--- NOTE | 2023-03-05 13:46 | ED_ITS ---
HPI - Back Pain/Injury General Chief Complaint: Back Pain/Injury Stated Complaint: Lower back pain/L leg pain Time Seen by Provider: 03/05/23 13:34 Source: patient Mode of arrival: ambulatory Limitations: no limitations History of Present Illness HPI Narrative: Patient is a 42 year old female with a history of HTN presents to the ED due to back pain radiating down her left leg. She reports that her symptoms started on Monday and have persisted since. She denies any trauma to the area or pushing, pulling, or lifting any heavy objects. She states that the pain starts at her left lower back and down to her left calf. She denies fever, chills, urinary symptoms or decrease sensation in her lower extremities bilaterally. She has applied a heating pad to her back and taken Tylenol, which provided minimal relief. The pain is worse when walking or standing and better when she is laying down. Related Data Previous Rx's Medication Instructions Recorded cyclobenzaprine 10 mg tablet 10 mg PO TID PRN muscle spasm #15 03/05/23 tabs naproxen 500 mg tablet 500 mg PO BID PRN pain #30 tabs 03/05/23 Allergies Allergy/AdvReac Type Severity Reaction Status Date / Time CHOCOLATE Allergy Unknown UNKNOWN Uncoded 03/05/23 12:36 SEAFOOD Allergy Unknown UNKNOWN Uncoded 03/05/23 12:36 Review of Systems Review of Systems: Yes all other systems are reviewed and are negative Constitutional: Constitutional: Reports no additional constitutional complaints, Denies body ache(s), Denies chills, Denies fever(s), Denies headache(s) and Denies weakness Eyes: Eyes: Reports no additional eye complaints and Denies change in vision ENT: Reports system reviewed and no additional complaints, except as documented, Denies dizziness, Denies headache(s), Denies nasal congestion, Denies nasal discharge and Denies neck pain Cardiovascular: Cardiovascular: Reports no additional cardiovascular complaints, Denies chest pain, Denies leg edema and Denies dyspnea Respiratory: Respiratory: Reports no additional respiratory complaints, Denies cough and Denies dyspnea Gastrointestinal: Gastrointestinal: Reports no additional gastrointestinal complaints, Denies abdominal pain, Denies diarrhea, Denies nausea and Denies vomiting Genitourinary: Genitourinary: Reports no additional female genitourinary c omplaints, Denies urinary incontinence and Denies vaginal discharge Musculoskeletal: Musculoskeletal: Reports no additional musculoskeletal compla ints, Reports back pain, Denies arthralgias, Denies joint swelling, Denies neck pain, Denies numbness, Reports radiating pain into limb and Denies tingling Integumentary/Breasts: Skin/Breast: Reports system reviewed and no additional complaints, except as docu and Denies rash Neurologic: Reports system reviewed and no additional complaints, except as documented, Denies Abnormal speech present, Denies dizziness, Denies headache(s), Denies numbness, Denies tingling and Denies weakness PMFSH Past Medical History Attestation statement: The following information was validated with the patient. Source: old records reviewed and nursing notes reviewed Medical History Hypertension Social History Social History Patient Tobacco Use Status: Former Tobacco user Advance Directives: No Physical Exam Vital Signs: Vital Signs: Last Vital Signs Temp 98 F 03/05/23 12:36 Pulse 83 03/05/23 12:36 Resp 19 03/05/23 12:36 BP 161/90 H 03/05/23 12:36 Pulse Ox 98 03/05/23 12:36 O2 Del Method Room Air 03/05/23 12:36 BMI result Body Mass Index 24.4 Const: General: cooperative, healthy appearing, comfortable and no acute distress Orientation/consciousness: patient oriented x3 Limitations: no limitations HEENT: Head: Yes normal to inspection Ears: hearing grossly normal bilaterally General nose exam: Normal external nose present Face and sinus: Yes normal facial exam Mouth: Normal oral and palatal mucosa present Throat: Yes posterior oropharynx normal Eyes: General: appearance normal, both eyes and all related structures Pupils: Equal, round and reactive pupils present Neck: Neck: Yes normal visual inspection Chest: Chest palpation & inspection: normal inspection of the chest Resp: Effort & Inspection: normal respiratory effort Auscultation: clear to auscultation bilaterally Cardio: Rate: regular rate Rhythm: regular rhythm Peripheral pulses: Peripheral pulses 2+ throughout GI: Inspection: Yes normal to inspection Palpation (GI): Soft to palpation and nontender Auscultation: normal bowel sounds : General: Yes no CVA tenderness Back/Spine/Pelvis: Back: no CVA tenderness Thoracic/Lumbar Spine: thoracic and lumbar spine normal to inspection Skin: General skin exam: no rashes or lesions noted Neuro: Other: +pain with left straight leg raise TTP to left lumbar and thoracic soft tissue, no midline tenderness, step-offs deformities General: patient oriented x3, no focal motor deficits and normal sensation to monofilament Cranial nerves: Yes Equal, round and reactive pupils present Cognition (Neuro): normal cognition Speech: No Abnormal speech present Gait exam (Neuro): Normal gait present Motor exam (neuro): 5/5 motor strength present throughout Sensory Exam: Normal double simultaneous stimulation for sensation Deep tendon reflexes (DTR's): Right patellar reflex intensity grade: 2+ and Left patellar reflex intensity grade: 2+ Extrem: General: Yes normal to inspection Medical Decision Making Medical Decision Making MDM Narrative: Patient is a 42 year old female with a history of HTN presents to the ED due to back pain radiating down her left leg. She reports that her symptoms started on Monday and have persisted since. She denies any trauma to the area or pushing, pulling, or lifting any heavy objects. She states that the pain starts at her left lower back and down to her left calf. She denies fever, chills, urinary symptoms or decrease sensation in her lower extremities bilaterally. She has applied a heating pad to her back and taken Tylenol, which provided minimal relief. The pain is worse when walking or standing and better when she is laying down. on exam patient has tenderness the left lumbar soft tissue and thoracic soft tissue with no midline tenderness, step-offs deformities. Pain is worsened with left straight leg raise. She has no overt neurological deficits or red flag symptoms. Exam is consistent with sciatica. Patient will be discharged home with NSAIDs, muscle relaxants and recommendations follow-up outpatient with primary care doctor. Reviewed worrisome signs and symptoms and when to return to the emergency room. Comfortable with plan for discharge home. Differential Diagnosis Differential Diagnoses: The differential diagnosis associated with the presentation includes renal colic, pyelonephritis, UTI - less likely with no reports of colicky symptoms or urinary tract symptom AAA-Less likely with gradual onset of symptoms cauda equina/cord compression- no neurological deficits or red flag symptoms epidural abscess- no history of immunocompromise state, IV drug abuse, no neurological deficits or red flag symptoms malignancy- no reports of weight loss, night sweats, normal neuro exam sciatica, lumbar radiculopathy, lumbar strain Admission/Observation Consideration of admission/observation: Escalation of care including admission/observation considered no neurological deficits or red flag symptoms to suggest need for emergent MRI Tests considered The following testing was considered but not selected: no neurological deficits or red flag symptoms to suggest need for emergent MRI Prescription Management I considered prescription management with: Pain Medication Discharge Plan Discharge Clinical Impression: Sciatica Patient Disposition: Home, Self-Care Instructions: Sciatica (ED) Additional Instructions: return for incontinence of urine or stool, fever, numbness in the groin, weakness take the medications as prescribed Follow-up with your primary care doctor for any continued symptoms Prescriptions: New naproxen 500 mg tablet 500 mg PO BID PRN (Reason: pain) Qty: 30 0RF cyclobenzaprine 10 mg tablet 10 mg PO TID PRN (Reason: muscle spasm) Qty: 15 0RF Referrals: Tuan Dan MD [Primary Care Provider] - 1 week Stand Alone Forms: Work/School Release Interventions: ED Discharge Assessment Last Done: 03/05/23 14:47 Discharge Date/Time: 03/05/23 14:48
== END 2023-03-05 14:48 | disposition home or self-care (01) ==
PROVIDERS: Emergency Provider Emergency Medicine; PCP Family Medicine
DX: M54.42 Lumbago with sciatica, left side (principal)
CPT/HCPCS: 99282

== ENCOUNTER 2024-02-24 16:03 | Emergency (ER) | payer OTHER, MEDICAID, SELFPAY ==
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
[2024-02-24 16:09] VITALS: BP 142/92; PULSE 96; RESP 18; TEMP 36.8; O2SAT 94; BMI 25.2
[2024-02-24] MEDS: Ketorolac Tromethamine 30 MG/ML VIAL IM (17:26)
[2024-02-24] MEDS: Lidocaine 4 % Patch ADH..PATCH 1 PATCH TRANSDERMA (17:26)
[2024-02-24] MEDS: Cyclobenzaprine HCl 5 MG TABLET PO (17:26)
[2024-02-24 18:36] VITALS: BP 134/83; PULSE 63; RESP 19; TEMP 36.6; O2SAT 97
[2024-02-24 18:39] VITALS: BP 134/83; PULSE 63; RESP 19; TEMP 36.6; O2SAT 97
== END 2024-02-24 18:40 | disposition home or self-care (01) ==
PROVIDERS: Emergency Provider Emergency Medicine Emergency Medical Services; PCP Family Medicine
DX: S16.1XXA Strain of muscle, fascia and tendon at neck level, initial encounter (principal); V43.52XA Car driver injured in collision with other type car in traffic accident, initial encounter; Y93.89 Activity, other specified; Y92.414 Local residential or business street as the place of occurrence of the external cause; Y99.9 Unspecified external cause status
CPT/HCPCS: 70450; 72125; 96372; 99283; 99284; J1885